=== PATIENT | female | born 1975 | race Caucasian/White ===

== ENCOUNTER → 2020-10-16 | Day surgery (SDC) | payer BC ==
[~2020-10-16] MED LIST: AMLODIPINE-BEN1 EACH PO; CETIRIZINE HCL10 MG PO; DOCUSATE SODIU100 MG PO; HYDROCHLOROTHIA50 MG PO; NAPROXEN250 MG PO; PROVERA10 MG PO; RIZATRIPTAN5 MG PO; ROXICODONE TAB 55 MG PO; ZANAFLEX4 MG PO
[2020-10-16 07:15] LABS: HEMOGLOBIN 14.8 gm/dl (12.3-15.3); RED BLOOD COUNT 5.09 M/UL (4.00-5.10); WHITE BLOOD COUNT 7.8 K/UL (4.5-11.0)
[2020-10-16 07:43] LABS: BUN/CREATININE RATIO 11 (0-10)
== END | disposition home or self-care (01) ==
LOC: OR 06:46
PROVIDERS: Obstetrics & Gynecology
DX: N92.0 Excessive and frequent menstruation with regular cycle (principal); I10 Essential (primary) hypertension; R93.89 Abnormal findings on diagnostic imaging of other specified body structures; Z20.822 Contact with and (suspected) exposure to COVID-19; E78.5 Hyperlipidemia, unspecified
CPT/HCPCS: 36415; 80053; 81001; 84702; 85025; 93005; J1100; J1170; J1885; J2250; J2405; J2704; J2795; J3010; J7030; J7120